=== PATIENT | male | born 1990 | race Caucasian/White ===

== ENCOUNTER 2016-11-21 23:21 | Emergency (ER) | payer MEDICAID, SELFPAY ==
[2016-11-21] MEDS ORDERED: Gentamicin 0.3% Ophth Soln 5 ML Bottle EYEBOTH STA (23:41)
[2016-11-21] MEDS ORDERED: Gentamicin 0.3% Ophth Soln 5 ML Bottle ONE (23:42)
--- NOTE | 2016-11-21 23:50 | EDM.PDOC ---
ED HPI GENERAL MEDICAL PROBLEM - General Stated Complaint: EYE PAIN Time Seen by Provider: 11/21/16 23:44 Source of Information: Reports: Patient, Family History Limitations: Reports: No Limitations - History of Present Illness INITIAL COMMENTS - FREE TEXT/NARRATIVE: 26 y.o.w.m came to the ed with his friend due to photophobia and eye pain for 2- 3 days. pt has cats at home. Denied trauma or FB sensation. Onset: Gradual Onset Date: 11/18/16 Onset Time: 08:00 Duration: Day(s):, Intermittent Location: Reports: Face Quality: Reports: Burning Severity: Mild Improves with: Reports: Cold Therapy Worsens with: Reports: None - Related Data Allergies Allergy/AdvReac Type Severity Reaction Status Date / Time No Known Allergies Allergy Verified 11/21/16 23:54 Home Meds: Home Meds QUEtiapine [SEROquel] 50 mg PO BEDTIME #30 tablet 12/15/14 [Rx] Sertraline [Zoloft] 50 mg PO DAILY #30 tablet 12/15/14 [Rx] Past Medical History - Past Health History Medical/Surgical History: Denies Medical/Surgical History Other Psychiatric History: SUICIDE THOUGHTS Social & Family History - Tobacco Use Smoking Status *Q: Never Smoker Second Hand Smoke Exposure: No - Alcohol Use Days Per Week of Alcohol Use: 0 Number of Drinks Per Day: 8 Total Drinks Per Week: 0 - Recreational Drug Use Recreational Drug Use: Yes Drug Use in Last 12 Months: Yes Recreational Drug Type: Reports: Marijuana/Hashish Recreational Drug Use Frequency: Monthly ED ROS GENERAL - Review of Systems Review Of Systems: See Below Constitutional: Reports: No Symptoms HEENT: Reports: Eye Pain Respiratory: Reports: No Symptoms Cardiovascular: Reports: No Symptoms Endocrine: Reports: No Symptoms GI/Abdominal: Reports: No Symptoms : Reports: No Symptoms Musculoskeletal: Reports: No Symptoms Skin: Reports: No Symptoms Neurological: Reports: No Symptoms Psychiatric: Reports: No Symptoms Hematologic/Lymphatic: Reports: No Symptoms Immunologic: Reports: No Symptoms ED EXAM GENERAL W FULL EYE - Physical Exam Exam: See Below Exam Limited By: No Limitations General Appearance: Alert, WD/WN, No Apparent Distress, Obese Eye Exam: Bilateral Eye: Conjunctival Injection Visual Acuity (R) 20/: 50 Visual Acuity (L) 20/: 50 With Correction: No Eyelids: Bilateral: Normal Appearance Extraocular Movements: Bilateral: Intact Pupils: Normal Accommodation Pupillary Size: Bilateral: 3 mm Anterior Chamber: Bilateral: Normal Appearance Ears: Normal External Exam Nose: Normal Inspection Throat/Mouth: Normal Inspection Head: Atraumatic Neck: Normal Inspection Respiratory/Chest: No Respiratory Distress Cardiovascular: Normal Peripheral Pulses GI/Abdominal: Normal Bowel Sounds (Male) Exam: No Hernia, Normal Inspection, Normal Prostate (Female) Exam: Deferred Rectal (Males) Exam: Deferred Rectal (Female) Exam: Deferred Back Exam: Normal Inspection, Full Range of Motion Extremities: Normal Inspection, Normal Range of Motion, Non-Tender Neurological: Alert, Oriented, CN II-XII Intact, Normal Cognition Psychiatric: Normal Affect Lymphatic: No Adenopathy Course - Vital Signs Text/Narrative:: 26 y.o.w.m came to the ed with his friend due to photophobia and eye pain for 2- 3 days. pt has cats at home. Denied trauma or FB sensation. PE: Bilat conjuntivitis, no coneal abrasion as per Fluorescein test Tx: Gentamycin eydrops Impression: Bacterial conjuctivitis PReexam: Improvemed Plan: D/C with instructions Last Recorded V/S: Last Vital Signs Temp 36.6 C 11/21/16 23:55 Pulse 82 11/21/16 23:55 Resp 20 11/21/16 23:55 BP 133/84 11/21/16 23:55 Pulse Ox 96 11/21/16 23:55 - Orders/Labs/Meds Orders: Active Orders 24 hr Category Date Time Status Eye Irrigation [RC] ASDIRECTED Care 11/21/16 23:28 Active Visual Acuity [Vision Test] [RC] ASDIRECTED Care 11/21/16 23:52 Ordered Meds: Medications Discontinued Medications Generic Name Dose Route Start Last Admin Trade Name Freq PRN Reason Stop Dose Admin Gentamicin Sulfate 3 ml 11/21/16 23:41 Garamycin 0.3% Ophth Soln EYEBOTH 11/21/16 23:42 TID STA Departure - Departure Time of Disposition: 23:45 Disposition: Home, Self-Care 01 Condition: good Clinical Impression: Conjunctivitis Qualifiers: Conjunctivitis type: acute Acute conjunctivitis type: bacterial Laterality: bilateral Qualified Code(s): H10.33 - Unspecified acute conjunctivitis, bilateral - Discharge Information Referrals: PCP,None [Primary Care Provider] - Additional Instructions: Please apply 3 drops of gentamycion in each eye every 4 hours for 3 days. Please f/u with your eye doctor in next 24 hours. please come back to the e if your symptoms get worse acutely. - My Orders Last 24 Hours: My Active Orders 11/21/16 23:28 Eye Irrigation [RC] ASDIRECTED 11/21/16 23:52 Visual Acuity [Vision Test] [RC] ASDIRECTED - Assessment/Plan Last 24 Hours: My Active Orders 11/21/16 23:28 Eye Irrigation [RC] ASDIRECTED 11/21/16 23:52 Visual Acuity [Vision Test] [RC] ASDIRECTED
[2016-11-21 23:56] VITALS: BP 133/84
== END 2016-11-22 00:10 | disposition home or self-care (01) ==
LOC: FB.ED 23:21
DX: H10.33 Unspecified acute conjunctivitis, bilateral (principal); Z79.899 Other long term (current) drug therapy
CPT/HCPCS: 99283; A4217; A9270

== ENCOUNTER 2019-03-01 22:39 | Emergency (ER) | payer MEDICAID ==
[2019-03-01] MEDS ORDERED: Sodium Chloride 0.9% 10 ML Syringe FLUSH PRN (22:41)
[2019-03-01] MEDS ORDERED: Ketorolac 30 MG/ML SDV IVPUSH ONE (22:58)
--- NOTE | 2019-03-01 23:03 | EDM.PDOC ---
ED HPI GENERAL MEDICAL PROBLEM - General Chief Complaint: Chest Pain Stated Complaint: chest pains Time Seen by Provider: 03/01/19 22:58 Source of Information: Reports: Patient History Limitations: Reports: No Limitations - History of Present Illness INITIAL COMMENTS - FREE TEXT/NARRATIVE: Presents with generalized chest pain radiating to back x 2 hours exacerbated with arm movement and inspiration. Endorses SOB. No cough. Denies prior or family h/o CAD, DVT/PE or Aortic Aneurysm, patient does not know his father's medical history though. Onset: Today Duration: Hour(s): (2) Location: Reports: Chest Quality: Reports: Dull Severity: Moderate mid chest Pain Score (Numeric/FACES): 10 - Related Data Allergies Allergy/AdvReac Type Severity Reaction Status Date / Time No Known Allergies Allergy Verified 11/21/16 23:54 Home Meds: Home Meds QUEtiapine [SEROquel] 50 mg PO BEDTIME #30 tablet 12/15/14 [Rx] Sertraline [Zoloft] 50 mg PO DAILY #30 tablet 12/15/14 [Rx] Past Medical History Cardiovascular History: Reports: None Psychiatric History: Reports: Anxiety, Depression Other Psychiatric History: SUICIDE THOUGHTS Social & Family History - Tobacco Use Smoking Status *Q: Never Smoker - Caffeine Use Caffeine Use: Reports: Soda - Alcohol Use Alcohol Use History: Yes Alcohol Use in Last Twelve Months: Yes Alcohol Use Frequency: Rarely ED ROS GENERAL - Review of Systems Review Of Systems: ROS reveals no pertinent complaints other than HPI. ED EXAM, GENERAL - Physical Exam Exam: See Below Exam Limited By: No Limitations General Appearance: Alert, WD/WN, No Apparent Distress Ears: Normal External Exam Nose: Normal Inspection Throat/Mouth: No Airway Compromise Head: Atraumatic, Normocephalic Neck: Supple Respiratory/Chest: No Respiratory Distress, Lungs Clear, Normal Breath Sounds, Other (chest wall is tender to palpation) Cardiovascular: Regular Rate, Rhythm, No Murmur GI/Abdominal: No Distention Extremities: Normal Inspection, Normal Range of Motion, Non-Tender, No Pedal Edema Neurological: Alert, Normal Cognition, No Motor/Sensory Deficits EKG INTERPRETATION EKG Date: 03/01/19 Time: 22:40 Rhythm: NSR Rate (Beats/Min): 66 Stover: Normal P-Wave: Present QRS: Normal ST-T: Normal QT: Normal Course - Vital Signs Last Recorded V/S: Last Vital Signs Temp 36.6 C 03/01/19 22:39 Pulse 70 03/01/19 22:39 Resp 14 03/01/19 22:39 BP 106/56 L 03/01/19 22:39 Pulse Ox 98 03/01/19 22:39 - Orders/Labs/Meds Orders: Active Orders 24 hr Category Date Time Status EKG Documentation Completion [RC] ASDIRECTED Care 03/01/19 22:40 Active CXR [Chest 1V Frontal] [CR] Stat Exams 03/01/19 22:41 Ordered CBC WITH AUTO DIFF [HEME] Stat Lab 03/01/19 22:48 Received Sodium Chloride 0.9% [Saline Flush] Med 03/01/19 22:41 Active 10 ml FLUSH ASDIRECTED PRN Saline Lock Insert [OM.PC] Routine Oth 03/01/19 22:41 Ordered EKG 12 Lead [EK] Stat Ther 03/01/19 22:40 Ordered Medication Orders Sodium Chloride (Saline Flush) 10 ml FLUSH ASDIRECTED PRN PRN Reason: Keep Vein Open Last Admin: 03/01/19 23:11 Dose: 10 ml Labs: Laboratory Tests 03/01/19 03/01/19 03/01/19 Range/Units 22:48 22:48 22:48 PT 10.8 (8.7-11.1) INR 1.11 (0.89-1.13) APTT 22.6 L (24.4-33.2) SECONDS D-Dimer, Quantitative 0.23 (0.0-0.59) mg/LFEU Sodium 141 (135-145) mmol/L Potassium 3.8 (3.5-5.3) mmol/L Chloride 105 (100-110) mmol/L Carbon Dioxide 28 (21-32) mmol/L BUN 10 (7-18) mg/dL Creatinine 1.0 (0.70-1.30) mg/dL Est Cr Clr Drug Dosing TNP Estimated GFR (MDRD) > 60 (>60) BUN/Creatinine Ratio 10.0 (9-20) Glucose 91 (80-116) mg/dL Calcium 9.8 (8.6-10.2) mg/dL Total Bilirubin 0.3 (0.1-1.3) mg/dL AST 24 (5-25) IU/L ALT 44 H (12-36) U/L Alkaline Phosphatase 105 (56-112) IU/L Troponin I < 0.017 L (<0.017-0.056) ng/mL Total Protein 7.5 (6.0-8.0) g/dL Albumin 4.2 (3.5-5.2) g/dL Globulin 3.3 g/dL Albumin/Globulin Ratio 1.3 Meds: Medications Generic Name Dose Route Start Last Admin Trade Name Freq PRN Reason Stop Dose Admin Sodium Chloride 10 ml 03/01/19 22:41 03/01/19 23:11 Saline Flush FLUSH 10 ml ASDIRECTED PRN Administration Keep Vein Open Discontinued Medications Generic Name Dose Route Start Last Admin Trade Name Freq PRN Reason Stop Dose Admin Ketorolac Tromethamine 30 mg 03/01/19 22:58 03/01/19 23:11 Toradol IVPUSH 03/01/19 22:59 30 mg ONETIME ONE Administration - Radiology Interpretation Free Text/Narrative:: CXR: No acute process (ED provider interpretation). - Re-Assessments/Exams Free Text/Narrative Re-Assessment/Exam: 03/02/19 01:14 Pain improved after Toradol 30 mg IV. Departure - Departure Time of Disposition: 01:15 Disposition: Home, Self-Care 01 Condition: Good Clinical Impression: Costochondritis Instructions: Costochondritis, [id number] Referrals: PCP,None [Primary Care Provider] - Forms: ED Department Discharge Additional Instructions: Take OTC Ibuprofen as needed for discomfort, rest. Return to the ER if symptoms worsen. - My Orders Last 24 Hours: My Active Orders 03/01/19 22:40 EKG Documentation Completion [RC] ASDIRECTED EKG 12 Lead [EK] Stat 03/01/19 22:41 CXR [Chest 1V Frontal] [CR] Stat Sodium Chloride 0.9% [Saline Flush] 10 ml FLUSH ASDIRECTED PRN Saline Lock Insert [OM.PC] Routine 03/01/19 22:48 CBC WITH AUTO DIFF [HEME] Stat - Assessment/Plan Last 24 Hours: My Active Orders 03/01/19 22:40 EKG Documentation Completion [RC] ASDIRECTED EKG 12 Lead [EK] Stat 03/01/19 22:41 CXR [Chest 1V Frontal] [CR] Stat Sodium Chloride 0.9% [Saline Flush] 10 ml FLUSH ASDIRECTED PRN Saline Lock Insert [OM.PC] Routine 03/01/19 22:48 CBC WITH AUTO DIFF [HEME] Stat
[2019-03-01 23:32] VITALS: BP 106/56
== END 2019-03-02 01:20 | disposition home or self-care (01) ==
LOC: FB.ED 22:39
DX: M94.0 Chondrocostal junction syndrome [Tietze] (principal); F41.9 Anxiety disorder, unspecified; F32.9 Major depressive disorder, single episode, unspecified; Z79.899 Other long term (current) drug therapy
CPT/HCPCS: 36415; 71045; 80053; 84484; 85025; 85379; 85610; 85730; 93005; 99285; J1885

== ENCOUNTER 2020-02-16 08:42 | Emergency (ER) | payer MEDICAID ==
--- NOTE | 2020-02-16 09:56 | EDM.PDOC ---
ED HPI GENERAL MEDICAL PROBLEM - General Chief Complaint: Upper Extremity Injury/Pain Stated Complaint: LEFT ARM HURTS Time Seen by Provider: 02/16/20 09:45 Source of Information: Reports: Patient History Limitations: Reports: No Limitations - History of Present Illness INITIAL COMMENTS - FREE TEXT/NARRATIVE: pt is here asking for an xray of left forearm , worried it could be broken, pt report falling on it this past Monday after slipping at [employer] and since then he has left shoulder and sever left forearm pain , was seen at clinic and has vicodin and flexeril which are helping with pain, pt denies any other injuries or any other concerns . 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: Other (see below) L elbow, forearm & wrist Pain Score (Numeric/FACES): 10 - Related Data Allergies Allergy/AdvReac Type Severity Reaction Status Date / Time No Known Allergies Allergy Verified 02/16/20 08:50 Home Meds: Home Meds Acetaminophen/HYDROcodone [[place] 325-5 MG] 1 tab PO Q4H PRN 02/16/20 [History] Cyclobenzaprine [Flexeril] 10 mg PO BID PRN 02/16/20 [History] Meloxicam [Mobic] 7.5 mg BID PRN 02/16/20 [History] Past Medical History Cardiovascular History: Reports: None Gastrointestinal History: Reports: GERD Musculoskeletal History: Reports: Fracture Other Musculoskeletal History: hx fx fingers Psychiatric History: Reports: Anxiety, Depression Other Psychiatric History: SUICIDE THOUGHTS Endocrine/Metabolic History: Reports: Obesity/BMI 30+ - Infectious Disease History Infectious Disease History: Reports: Chicken Pox Social & Family History - Family History Family Medical History: Noncontributory - Tobacco Use Smoking Status *Q: Never Smoker - Caffeine Use Caffeine Use: Reports: Soda - Recreational Drug Use Recreational Drug Use: No Review of Systems - Review of Systems Review Of Systems: See Below Constitutional: Reports: No Symptoms Respiratory: Reports: No Symptoms Cardiovascular: Reports: No Symptoms GI/Abdominal: Reports: No Symptoms Musculoskeletal: Reports: Shoulder Pain, Arm Pain. Denies: Muscle Pain Skin: Reports: No Symptoms Neurological: Reports: No Symptoms ED EXAM, GENERAL - Physical Exam Exam: See Below Exam Limited By: No Limitations General Appearance: Alert, Mild Distress Eye Exam: Bilateral Eye: Normal Inspection Nose: Normal Inspection Head: Atraumatic, Normocephalic Neck: Other (no tenderness over the cervical spine, pain at LUE reproduced with movement of neck to left side ) Respiratory/Chest: No Respiratory Distress, Lungs Clear, Normal Breath Sounds Cardiovascular: Normal Peripheral Pulses, Regular Rate, Rhythm, No Murmur GI/Abdominal: Normal Bowel Sounds, Soft, Non-Tender Extremities: Normal Inspection, Other (no deformities, seems little tender on soft tissue on lateral side of fleft forearm, no bruising , ROM at left shoulder/elbow/ wrist is full and LUE is NVI. ) Neurological: Alert, Oriented, CN II-XII Intact Course - Vital Signs Text/Narrative:: xray of left forearm shows no acute findings, pt has sx of radicular pain from cervical spine, supportive mng was recommended, may continue with current medications and was asked to follow with PT this monday as scheduled. Last Recorded V/S: Last Vital Signs Temp 36.5 C 02/16/20 08:44 Pulse 85 02/16/20 08:44 Resp 20 02/16/20 08:44 BP 139/108 H 02/16/20 08:44 Pulse Ox 97 02/16/20 08:44 - Orders/Labs/Meds Orders: Active Orders 24 hr Category Date Time Status Forearm 2V Lt [CR] Stat Exams 02/16/20 09:10 Ordered Departure - Departure Time of Disposition: 10:00 Disposition: Home, Self-Care 01 Clinical Impression: Radicular pain in left arm - Discharge Information Referrals: Jakob Londono MD [Primary Care Provider] - Sepsis Event Note (ED) - Evaluation Sepsis Screening Result: No Definite Risk - Focused Exam Vital Signs: Vital Signs Temp Pulse Resp BP Pulse Ox 02/16/20 08:44 36.5 C 85 20 139/108 H 97 - My Orders Last 24 Hours: My Active Orders 02/16/20 09:10 Forearm 2V Lt [CR] Stat - Assessment/Plan Last 24 Hours: My Active Orders 02/16/20 09:10 Forearm 2V Lt [CR] Stat
[2020-02-16 10:17] VITALS: BP 152/118; PULSE 80
--- NOTE | 2020-02-17 10:41 | CR ---
LEFT FOREARM: INDICATION: Fell two weeks prior. Pain posterior forearm. Frontal and lateral views of the left forearm reveal no evidence of a fracture, dislocation, or other definite bone or joint abnormality. Additional examination could be obtained if occult fracture site is suspected clinically, such as nuclear bone imaging, or MRI. [facility]
== END 2020-02-16 10:09 | disposition home or self-care (01) ==
LOC: FB.ED 08:42
DX: M54.12 Radiculopathy, cervical region (principal); E66.9 Obesity, unspecified; Z68.33 Body mass index [BMI] 33.0-33.9, adult
CPT/HCPCS: 73090-LT; 99283-25

== ENCOUNTER 2023-07-01 23:56 | Emergency (ER) | payer MEDICAID ==
[2023-07-02 00:30] VITALS: BP 146/88; PULSE 88
== END 2023-07-02 02:29 | disposition home or self-care (01) ==
LOC: FB.ED 23:56
DX: S00.93XA Contusion of unspecified part of head, initial encounter (principal); M25.532 Pain in left wrist; M79.645 Pain in left finger(s); W22.09XA Striking against other stationary object, initial encounter
CPT/HCPCS: 73130-LT; 99283